=== PATIENT | female | born 1940 | race Caucasian/White ===

== ENCOUNTER → 2016-05-15 | Outpatient (CLI) | payer OTHER, BC ==
[~2016-05-15] MED LIST: AMLO2.5T2 PO; GLC500 PO; LOSA50TA6 PO; MULT-506 PO; PRM/3 PO; PRMVC PV; TRIATAB3 PO
[2016-05-15 17:33] LABS: ALT/SGPT 29 U/L (12-78); AST/SGOT 16 U/L (15-37); BLOOD UREA NITROGEN 17 mg/dl (7-18); BUN/CREATININE RATIO 21.3 (10-20); CALCIUM 9.1 mg/dl (8.5-10.1); CARBON DIOXIDE 27 mmol/L (21-32); CHLORIDE 104 mmol/L (98-107); GLUCOSE 129 mg/dl (70-99); POTASSIUM 4.1 mmol/L (3.5-5.1); SODIUM 141 mmol/L (136-145)
[2016-05-15 17:36] LABS: ALB/GLOB RATIO 1.5 (0.9-2); ALKALINE PHOSPHATASE 46 U/L (45-117); CHOLESTEROL 226 mg/dl (0-200); CHOLESTEROL/HDL RATIO 3.2; HDL CHOLESTEROL 71 mg/dl; LDL CHOLESTEROL CALCULATED 114 mg/dl; TRIGLYCERIDES 205 mg/dl (0-150); VERY LOW DENSITY LIPOPROT CALC 41 mg/dl
[2016-05-16 06:30] LABS: ESTIMATED AVERAGE GLUCOSE 163 mg/dl; HA1C FLAG Normal (Normal)
== END | disposition home or self-care (01) ==
LOC: C.LABPVFM 10:45
PROVIDERS: ATTEND Family Medicine
DX: I10 Essential (primary) hypertension (principal); E11.9 Type 2 diabetes mellitus without complications; E78.5 Hyperlipidemia, unspecified

== ENCOUNTER → 2016-09-12 | Outpatient (CLI) | payer OTHER, BC ==
--- NOTE | 2016-09-12 17:13 | MAMMOGRAPHY REPORT ---
BILATERAL DIGITAL SCREENING MAMMOGRAM WITH CAD: 09/12/2016 CLINICAL HISTORY: Routine screening. Patient has no complaints. TECHNIQUE: Bilateral CC and MLO views were obtained. Current study was also evaluated with a Compute r Aided Detection (CAD) system. COMPARISON: Comparison is made to exams dated: 08/30/2015 mammogram, 08/25/2014 mammogram, 08/21/2013 m ammogram, 08/20/2012 mammogram, 08/20/2011 mammogram, and 08/16/2010 mammogram - [facility] enter. BREAST COMPOSITION: There are scattered areas of fibroglandular density in both breasts. FINDINGS: A linear scar marker overlies the upper inner posterior right breast. A few benign-appear ing microcalcifications in the breasts. No new suspicious mass, architectural distortion or cluster of microcalcifications is seen. IMPRESSION: ACR BI-RADS CATEGORY 1: NEGATIVE There is no mammographic evidence of malignancy. A 1 year screening mammogram is recommended. The pa tient will receive written notification of the results. Approximately 10% of breast cancers are not detected with mammography. A negative mammographic report should not delay biopsy if a clinically suggestive mass is present. Adia Rand M.D. ay/:09/12/2016 15:04:49 Buffing Machine Tender: Kira POWER(R)(M), [facility] letter sent: Normal 1/2 BI-RADS Code: ACR BI-RADS Category 1: Negative
== END | disposition home or self-care (01) ==
LOC: C.MAMM 14:20
PROVIDERS: ATTEND Obstetrics & Gynecology
DX: Z12.31 Encounter for screening mammogram for malignant neoplasm of breast (principal)

== ENCOUNTER → 2016-11-05 | Outpatient (CLI) | payer OTHER, BC ==
[2016-11-05 12:51] LABS: BLOOD UREA NITROGEN 16 mg/dl (7-18); BUN/CREATININE RATIO 18.4 (10-20); CALCIUM 9.6 mg/dl (8.5-10.1); CARBON DIOXIDE 27 mmol/L (21-32); CHLORIDE 103 mmol/L (98-107); CHOLESTEROL 222 mg/dl (0-200); CREATININE 0.88 mg/dl (0.60-1.20); GLUCOSE 178 mg/dl (70-99); POTASSIUM 3.8 mmol/L (3.5-5.1); SODIUM 137 mmol/L (136-145)
[2016-11-05 12:54] LABS: CHOLESTEROL/HDL RATIO 3.3; HDL CHOLESTEROL 67 mg/dl; LDL CHOLESTEROL CALCULATED 118 mg/dl; TRIGLYCERIDES 184 mg/dl (0-150); VERY LOW DENSITY LIPOPROT CALC 37 mg/dl
[2016-11-05 13:02] LABS: ESTIMATED AVERAGE GLUCOSE 189 mg/dl; HA1C FLAG Normal (Normal)
== END | disposition home or self-care (01) ==
LOC: C.LABPVFM 10:26
PROVIDERS: ATTEND Nurse Practitioner
DX: E78.5 Hyperlipidemia, unspecified (principal); E11.9 Type 2 diabetes mellitus without complications; I10 Essential (primary) hypertension

== ENCOUNTER → 2017-03-26 | Outpatient (CLI) | payer OTHER, BC ==
[2017-03-26 13:06] LABS: BLOOD UREA NITROGEN 25 mg/dl (7-18); BUN/CREATININE RATIO 27.9 (10-20); CARBON DIOXIDE 28 mmol/L (21-32); CHLORIDE 102 mmol/L (98-107); CREATININE 0.91 mg/dl (0.60-1.20); GLUCOSE 162 mg/dl (70-99); POTASSIUM 3.7 mmol/L (3.5-5.1); SODIUM 137 mmol/L (136-145)
[2017-03-26 13:22] LABS: ESTIMATED AVERAGE GLUCOSE 171 mg/dl; HA1C FLAG Normal (Normal)
== END | disposition home or self-care (01) ==
LOC: C.LABPVFM 10:43
PROVIDERS: ATTEND Nurse Practitioner
DX: D12.6 Benign neoplasm of colon, unspecified (principal); E11.9 Type 2 diabetes mellitus without complications

== ENCOUNTER → 2017-05-16 | Outpatient (CLI) | payer OTHER, BC | END | disposition home or self-care (01) | LOC: C.LABPVFM 11:04 | PROVIDERS: ATTEND Nurse Practitioner | DX: E78.5 Hyperlipidemia, unspecified (principal) ==

== ENCOUNTER 2024-10-30 08:06 | Observation (INO) ==
--- NOTE | 2024-10-12 11:30 | PAT Medication Instructions ---
Medication Instructions Date of Service October 12, 2024 Home Medications Medication Instructions Recorded triamcinolone acetonide 0.1 % 1 applic topical BID PRN rash #15 10/15/22 topical ointment grams blood sugar diagnostic (OneTouch #100 ea 06/04/23 Verio test strips) blood-glucose meter #1 ea 06/04/23 lancets #100 ea 06/04/23 amlodipine 5 mg tablet 5 mg PO BID #180 tabs 03/17/24 celecoxib 100 mg capsule 100 mg PO BID PRN pain #60 caps 07/28/24 insulin glargine 100 unit/mL (3 See Rx Instructions subcut 08/26/24 mL) subcutaneous pen (Lantus .COMPLEX #30 mL Solostar U-100 Insulin) pen needle, diabetic 32 gauge x #200 ea 08/26/24" blood-glucose sensor (Dexcom G7 #3 ea 08/27/24 Sensor device) blood-glucose,credit collections specialist,cont #1 ea 08/27/24 (Dexcom G7 Pricing Consultant) trazodone 50 mg tablet 75 mg (1.5 x 50 mg) PO HS #135 tabs 09/11/24 biotin 5,000 mcg disintegrating tablet 5,000 mcg PO QAM multivitamin with iron 1 tab PO QAM triamcinolone acetonide 0.1 % topical ointment 1 applic topical BID PRN magnesium 200 mg tablet 200 mg PO QAM amlodipine 5 mg tablet 5 mg PO BID celecoxib 100 mg capsule 100 mg PO BID PRN insulin glargine 100 unit/mL (3 mL) subcutaneous pen (Lantus Solostar U-100 Insulin) See Rx Instructions subcut .COMPLEX trazodone 50 mg tablet 75 mg (1.5 x 50 mg) PO HS acetaminophen 500 mg capsule 1,000 mg PO Q6H PRN cholecalciferol (vitamin D3) 50 mcg (2,000 unit) capsule (Vitamin D3) 50 mcg PO QAM diclofenac sodium 1 % topical gel (Arthritis Pain (diclofenac)) 2 g topical QID PRN losartan 100 mg tablet 100 mg PO QAM metformin 500 mg tablet,extended release 24 hr 500 - 1,000 mg PO UD mirabegron 50 mg tablet,extended release 24 hr 50 mg PO QPM omeprazole 20 mg capsule,delayed release 20 mg PO HS ASK your surgeon for instructions celecoxib 100 mg capsule 100 mg PO BID PRN diclofenac sodium 1 % topical gel (Arthritis Pain (diclofenac)) 2 g topical QID PRN STOP taking 2 weeks before surgery (or as soon as possible if surgery is within 2 weeks) biotin 5,000 mcg disintegrating tablet 5,000 mcg PO QAM STOP taking 24 hours before surgery triamcinolone acetonide 0.1 % topical ointment 1 applic topical BID PRN DO NOT take the morning of surgery multivitamin with iron 1 tab PO QAM magnesium 200 mg tablet 200 mg PO QAM cholecalciferol (vitamin D3) 50 mcg (2,000 unit) capsule (Vitamin D3) 50 mcg PO QAM losartan 100 mg tablet 100 mg PO QAM metformin 500 mg tablet,extended release 24 hr 500 - 1,000 mg PO UD Take morning of surgery With a small sip of water, OTHERWISE NOTHING TO EAT OR DRINK AFTER MIDNIGHT: amlodipine 5 mg tablet 5 mg PO BID acetaminophen 500 mg capsule 1,000 mg PO Q6H PRN(if needed) Take evening before surgery amlodipine 5 mg tablet 5 mg PO BID insulin glargine 100 unit/mL (3 mL) subcutaneous pen (Lantus Solostar U-100 Insulin) See Rx Instructions subcut .COMPLEX trazodone 50 mg tablet 75 mg (1.5 x 50 mg) PO HS acetaminophen 500 mg capsule 1,000 mg PO Q6H PRN(if needed) mirabegron 50 mg tablet,extended release 24 hr 50 mg PO QPM omeprazole 20 mg capsule,delayed release 20 mg PO HS Insulin Dependent Diabetic Patients * Test your blood sugar the morning of surgery * If Blood Sugar is GREATER THAN 150, take HALF of your regular dose of: insulin glargine 100 unit/mL (3 mL) subcutaneous pen (Lantus Solostar U-100 Insulin). * If Blood Sugar is LESS THAN 150, DO NOT TAKE ANY: insulin glargine 100 unit/mL (3 mL) subcutaneous pen (Lantus Solostar U-100 Insulin). Other Notes If you have any questions please call us at [phone] or [phone] or [phone] or [phone]
--- NOTE | 2024-10-19 13:09 | Anesthesiology Consultation ---
Date of Service October 19, 2024 Assessment & Plan (1) Pre-op evaluation: Plan - check BSG am DOS. - awaiting signed 10/19/24 [place] PCP clearance. - Outpatient joint assessment: Patient is currently scheduled for inpatient pathway. If re-evaluated and patient/surgeon requests outpatient pathway, patient is not a candidate for outpatient joint program. Chart Review Chart Review: Pending: Refer to Additional Notes / Consult section and Patient seen in Pre Admission Testing Teaching & Discussion Pre-Anesthesia Teaching/Discussion Notes: Instructed NPO after midnight before surgery, except medications with 15 cc of water. Medication instructions provided according to the PAT guidelines. History Surgery Operation Date: 10/30/24 12:00 Proposed Procedures p Left Total Knee Arthroplasty - Fredis Dorado, Height/Weight Height: 5 ft 4 in Weight: 63 kg Allergies Allergy/AdvReac Type Severity Reaction Status Date / Time ammonia Allergy Unknown Verified 10/19/24 14:56 cephalexin Allergy Unknown unknown Verified 10/19/24 14:56 empagliflozin AdvReac Mild excessive Verified 10/19/24 14:56 [From Jardiance] thirst and freq urination hair dye Allergy Severe itchiness Uncoded 10/19/24 14:56 Medications Home Medications Medication Instructions Recorded Confirmed Last Taken biotin 5,000 mcg disintegrating 5,000 mcg PO QAM 04/20/19 10/19/24 Unknown tablet multivitamin with iron 1 tab PO QAM 03/09/22 10/19/24 Unknown triamcinolone acetonide 0.1 % 1 applic topical BID PRN rash #15 10/15/22 10/19/24 Unknown topical ointment grams blood sugar diagnostic (OneTouch #100 ea 06/04/23 10/19/24 Unknown Verio test strips) blood-glucose meter #1 ea 06/04/23 10/19/24 Unknown lancets #100 ea 06/04/23 10/19/24 Unknown magnesium 200 mg tablet 200 mg PO QAM 01/01/24 10/19/24 Unknown amlodipine 5 mg tablet 5 mg PO BID #180 tabs 03/17/24 10/19/24 Unknown celecoxib 100 mg capsule 100 mg PO BID PRN pain #60 caps 07/28/24 10/19/24 Unknown pen needle, diabetic 32 gauge x #200 ea 08/26/24 10/19/24 Unknown " blood-glucose sensor (Dexcom G7 #3 ea 08/27/24 10/19/24 Unknown Sensor device) blood-glucose,soliciting freight agent,cont #1 ea 08/27/24 10/19/24 Unknown (Dexcom G7 Director Of Residential Services) trazodone 50 mg tablet 75 mg (1.5 x 50 mg) PO HS #135 tabs 09/11/24 10/19/24 Unknown acetaminophen 500 mg capsule 1,000 mg PO Q6H PRN Pain 10/07/24 10/19/24 Unknown cholecalciferol (vitamin D3) 50 50 mcg PO QAM 10/07/24 10/19/24 Unknown mcg (2,000 unit) capsule (Vitamin D3) diclofenac sodium 1 % topical gel 2 g topical QID PRN Pain 10/07/24 10/19/24 Unknown (Arthritis Pain (diclofenac)) losartan 100 mg tablet 100 mg PO QAM 10/07/24 10/19/24 Unknown metformin 500 mg tablet,extended 500 - 1,000 mg PO UD 10/07/24 10/19/24 Unknown release 24 hr mirabegron 50 mg tablet,extended 50 mg PO QPM 10/07/24 10/19/24 Unknown release 24 hr omeprazole 20 mg capsule,delayed 20 mg PO HS GERD 10/07/24 10/19/24 Unknown release insulin glargine 100 unit/mL (3 See Rx Instructions subcut 10/19/24 10/19/24 Unknown mL) subcutaneous pen (Lantus .COMPLEX #30 mL Solostar U-100 Insulin) Past Medical History Medical History CAD (coronary artery disease) non-obstructive Costal chondritis hx, resolved per pt. 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 Exercise / Class Metabolic Activity III < 4 Walking/Shop/Light housework (less than 8 steps in home, ambulates with cane-denies chest discomfort or shortness of breath with usual activities) Past Family History Family History Mother Colorectal cancer Diabetes Hypertension Denies family history of Ovarian cancer Prostate cancer Breast cancer Stroke Past Surgical History Surgical History H/O wrist surgery left wrist, fx repair, 1 plate w/ 9 screws > hardware intact H/O: hysterectomy age 43 History of cataract extraction Hx of cardiac cath (2022) [facility], abn stress test, "false positive" Hx of colonoscopy ~age 70 Past Anesthesia History No Hx of Anesthesia Complications and No Family Hx of Anesthesia Complications History of PONV No Hx of PONV and No Hx of Motion Sickness Social History Smoking Status: Former smoker tobacco type: cigarettes Do You Dip or Chew Tobacco: No Smoking End Date: many years ago, occasional Hx Alcohol Use: No Hx Substance Use: No substance use type: does not use Review of Systems Patient denies chest pain, shortness of breath, dyspnea on exertion, snoring, witnessed apneas, fever, chills, cough, wheezing, or palpitations. Physical Exam Vital Signs Vitals BP 129/74 P 85 TEMP 98.1 SP02 94% on RA RESP 18 Physical Patient resting comfortably in chair in no acute distress, alert and oriented, responding appropriately throughout visit Full cervical extension range of motion without pain TMD 3.5 finger breadths Mallampati Score 2 Dentition: repaired front chipped tooth, denies chipped or loose teeth, caps/crowns, implants or bridges Lungs: normal respiratory effort. Good air movement, clear throughout to auscultation, no adventitious breath sounds Cardiac: regular rate and rhythm, no murmurs noted Carotid arteries: negative bruit bilat Lab Results Anesthesia Preop Results Results Anesthesia Widget: WBC 8.16 K/ul (4.8-10.8) 10/19/24 Hgb 11.7 g/dl (12.0-16.0) L 10/19/24 Hct 34.9 % (37.0-47.0) L 10/19/24 Plt 303 K/uL (130-400) 10/19/24 Na 138 mmol/L (136-145) 10/19/24 K 3.8 mmol/L (3.5-5.1) 10/19/24 Cl 104 mmol/L (98-107) 10/19/24 CO2 26 mmol/L (21-32) 10/19/24 BUN 17 mg/dl (6-23) 10/19/24 Creat 0.82 mg/dl (0.6-1.2) 10/19/24 Glucose Level 107 mg/dl (70-99(Fasting)) H 10/19/24 PT 10.6 Seconds (9.0-12.0) 10/19/24 PTT 30 Seconds (21-31) 10/19/24 INR 1.0 (0.9-1.1) 10/19/24 HA1c 6.6 % (4.5-5.6) H 10/19/24 Blood Type O Positive 10/19/24 Antibody Screen NEGATIVE 10/19/24 Testing Electrocardiogram Date: 10/19/24 NSR, rate 81 bpm Chest X-Ray Date: 10/19/24 No acute findings. Stress Test Date: 07/31/22 Development of EKG and echo cardiographic findings consistent with ischemia Mild cLVH METS 4.6 MPHR > 100% EF 60% Mild tricuspid regurgitation Cardiac Catheterization Date: 08/14/22 LM -Short, normal caliber, no significant disease LAD -medium caliber, proximal luminal irregularities, mid to distal vessel tortuous with no significant disease and extends to apex. Circumflex -dominant, large caliber, proximal/mid luminal irregularities. Distal vessel, left PDA without significant disease. Medium OM1 with 20% proxi mal disease. OM2 no disease. RCA -small, nondominant, no significant disease 1. Minimal nonobstructive coronary artery disease 2. Normal intracardiac filling pressure Recommendations: Stress test findings represent false positive.
--- NOTE | 2024-10-21 08:29 | Communication Note ---
Date of Service: October 21, 2024 Patient contacted JACEY, unable to add addendum due to awaiting co-signature. Patient states she drinks Pepto Bismol prior to appts for bowel control and I ad vised she cannot take that after midnight before surgery. She verbalized understanding, denied questions, concerns or additional medications.
[~2024-10-30 08:06] MED LIST changes: +ACETAMINOPHEN 500 MG TAB PO SCH; -AMLO2.5T2 PO; +FAMOTIDINE 20 MG TAB PO SCH; +GABAPENTIN 300 MG CAP PO SCH; -GLC500 PO; -LOSA50TA6 PO; +LR 60ML/HR IV SCH; -MULT-506 PO; -PRM/3 PO; -PRMVC PV; +ROPIV 0.5% 246mg, Ketorolac 30mg, EPINEPHrine 0.5mg in NSS INFIL SCH; +ROPIVACAINE 0.5% 5 MG/ML 30 ML VIAL ONE; +TRANEXAMIC ACID 1,000 MG **IV Pre-op IV SCH; -TRIATAB3 PO; +dexAMETHasone**PF** 10 MG/ML VIAL IV SCH
[2024-10-30] MEDS ORDERED: ONDANSETRON INJ 2 MG/ML 2 ML VIAL ONE (08:17)
[2024-10-30] MEDS ORDERED: PROPOFOL IV EMULSION 10 MG/ML 20 ML VIAL IV ONE (08:17)
[2024-10-30] MEDS ORDERED: MIDAZOLAM HCL 1 MG/ML 2ML VIAL ONE (08:18)
--- NOTE | 2024-10-30 09:11 | History & Physical Bridge Note ---
Date of Service October 30, 2024 History & Physical Bridge Note I have examined the patient, reviewed the History & Physical and in the interval since the performance of the History & Physical I have noted the following changes of clinical significance: no changes noted
[2024-10-30] MEDS ORDERED: Nursing to Pharmacy Communication SCH (09:15)
[2024-10-30] MEDS: LR 500ML BOLUS, THEN 15ML/HR IV SCH (09:29)
[2024-10-30] MEDS: ACETAMINOPHEN 500 MG TAB PO SCH ×2 (09:30→15:07)
[2024-10-30] MEDS: LR 60ML/HR IV SCH (09:31)
[2024-10-30] MEDS: dexAMETHasone**PF** 10 MG/ML VIAL IV SCH (09:31)
[2024-10-30] MEDS: GABAPENTIN 300 MG CAP PO SCH (09:31)
[2024-10-30] MEDS: FAMOTIDINE 20 MG TAB PO SCH (09:31)
[2024-10-30] MEDS: TRANEXAMIC ACID 1,000 MG **IV Pre-op IV SCH (09:46)
[2024-10-30] MEDS ORDERED: PHENYLEPHRINE 100MCG/ML 5ML SYR ONE (10:27)
[2024-10-30] MEDS ORDERED: PHENYLEPHRINE HCL 10 MG/ML VIAL ONE (10:27)
[2024-10-30] MEDS: ORTHO JOINT ANESTHETIC ONE (10:42)
[2024-10-30] MEDS: ROPIV 0.5% 246mg, Ketorolac 30mg, EPINEPHrine 0.5mg in NSS INFIL SCH (10:42)
--- NOTE | 2024-10-30 12:24 | XRay Report ---
XR knee LT 1 or 2V routine CLINICAL HISTORY: Postoperative evaluation. COMPARISON: Left knee radiographs August 18, 2024. FINDINGS: Alignment of the total left knee arthroplasty is anatomic. There is no periprosthetic frac ture or unexpected radiopaque foreign body. IMPRESSION: Expected findings following total left knee arthroplasty. ACT 112: Negative or not required by law. Electronically signed by: Raudel Haley M.D. 10/30/2024 12:23 PM
--- NOTE | 2024-10-30 13:14 | Anesthesiology Progress Note ---
Date of Service October 30, 2024 Anesthesia Post Procedure Vital Signs Vital Signs: Temp Pulse Resp BP Pulse Ox O2 Del Method 10/30/24 13:10 89 16 142/71 H 97 Room Air 10/30/24 12:55 92 H 15 145/70 H 94 Room Air 10/30/24 12:40 85 20 140/61 93 Room Air 10/30/24 12:30 84 22 138/71 96 Room Air 10/30/24 12:20 36.3 C L 76 18 139/77 96 Room Air 10/30/24 12:10 83 20 124/74 95 Room Air 10/30/24 12:00 82 14 147/64 H 95 Room Air 10/30/24 11:53 86 15 138/65 94 Room Air 10/30/24 08:57 36.6 C 85 20 173/84 H 98 Room Air Pain Intensity Left Knee: Pain Intensity: 3 Transfer of Care Handoff Completed per policy Notes Mental Status: alert / awake / arousable Patient Amnestic to Procedure: Yes Nausea / Vomiting: adequately controlled Pain: adequately controlled Airway Patency, RR, SpO2: stable & adequate BP & HR: stable & adequate Hydration State: stable & adequate Neuraxial Anesthesia: was administered and sensory block is resolving Anesthetic Complications: no major complications apparent
[2024-10-30] MEDS ORDERED: METOCLOPRAMIDE HCL INJ 5 MG/ML 2 ML VIAL IV PRN (13:41)
[2024-10-30] MEDS ORDERED: NALOXONE HCL 0.4 MG/1 ML VIAL/CARP IV PRN (13:41)
[2024-10-30] MEDS ORDERED: NON-FORMULARY MEDICATION (Insulin Glargine [Lantus Solostar U-100 Insulin] 100 unit/mL (3 SQ SCH (13:41)
[2024-10-30] MEDS ORDERED: MAGNESIUM HYDROXIDE SUSP 30 ML UDC PO PRN (13:41)
[2024-10-30] MEDS ORDERED: ONDANSETRON INJ 2 MG/ML 2 ML VIAL IV PRN (13:41)
[2024-10-30] MEDS ORDERED: HYDROmorphone INJ 0.5 MG/0.5 ML SYR IV PRN (13:41)
[2024-10-30] MEDS ORDERED: PHARMACY GLYCEMIC MGMT CONSULT PRN (13:41)
[2024-10-30] MEDS: SODIUM CHLORIDE 0.9% 1,000 ML IV SCH (13:45)
[2024-10-30] MEDS ORDERED: GLUCOSE 10 TAB/TUBE PO PRN (14:00)
[2024-10-30] MEDS ORDERED: CARBOHYDRATES FOR HYPOGLYCEMIA PO PRN (14:00)
[2024-10-30] MEDS ORDERED: GLUCOSE 40% GEL 15 GM TUBE PO PRN (14:00)
[2024-10-30] MEDS ORDERED: GLUCAGON FOR INJ 1 MG VIAL SQ PRN (14:00)
[2024-10-30] MEDS ORDERED: DEXTROSE 50% 50 ML SYRINGE IV PRN (14:00)
--- NOTE | 2024-10-30 14:08 | Pharmacy Report ---
Pharmacy Glycemic Short Note 2 - Date of Service October 30, 2024 - Glycemic Short BSG Results (Last 24 hours): 10/30/24 10/30/24 08:58 12:08 POC Glucose 126 H 135 H OUTPATIENT ANTIDIABETIC REGIMEN: * Lantus 8 units SC qAM, 5 units SC qPM * Metformin 500 mg PO qAM, 1000 mg PO qPM HbA1c: 6.6% (10/19/24) ASSESSMENT: * SB is an 84 year old female POD #0 s/p left total knee arthroplasty * Received 10 mg IV dexamethasone in OR, no ongoing steroids ordered * Preop blood sugar of 126 mg/dL and postop blood sugar of 135 mg/dL * Will utilize slight dose increase of home basal and weight/stress 2.5 for Novolog initially PLAN FOR INPATIENT GLYCEMIC CONTROL: * Hold outpatient oral diabetes medications * Basal insulin * Lantus 15 units SC x 1 * Reassess in AM * Bolus insulin * NovoLog per scale ACHS or Q6hrs while NPO * Goal Range: Low 120 mg/dL - High 150 mg/dL * Correction Factor: 30 mg/dL/unit * Nutritional / Prandial insulin per carb ratio of 1 unit per 10 grams CHO consumed
[2024-10-30] MEDS: INSULIN ASPART PER UNIT CHARGE SC SCH (15:04)
[2024-10-30] MEDS: LANTUS PER UNIT CHARGE SC ONE (15:06)
[2024-10-30] MEDS: KETOROLAC TROMETHAMINE 15 MG/ML VIAL IV SCH (15:07)
--- NOTE | 2024-10-30 15:50 | Operative Report ---
PG Post Operative Report Pre & Post Diagnosis Operation Date: 10/30/24 10:00 Pre-Op Diagnosis: Left Knee Osteoarthritis Post-Op Diagnosis: Left Knee Osteoarthritis I identified the patient and participated in the time-out.: Yes Procedure Operation Date: 10/30/24 10:00 Actual Procedures p Robotic Assisted Left Total Knee Arthroplasty(Left) - Fredis Dorado DO Surgeon Fredis Dorado DO Sewage Screen Operator Tahir Olson PA-C Estimated Blood Loss 30 Findings Consistent with Post-Op Diagnosis Specimens Left femoral and tibial bone Description of Procedure Implants used: I used a Jose Persona total knee arthroplasty system with a size 7 narrow PS femur, D tibia, 28 oval patella, and a size 14 CPS polyethylene bearing. All c omponents were cemented in place with Biomet cement. Juancho arrived [facility] for the above procedure. She was seen in the preoperative holding area and the operative extremity was identified and signed. She was given a preoperative antibiotic, TXA, a spinal anesthetic and an adductor nerve block. She was taken back to the operating room and laid on the table in supine position. She was given basic sedation. The operative knee was then prepped and draped in sterile fashion. A timeout was done, and the patient and the operative extremity was properly identified. A midline incision was made directly over the patella. Dissection was taken down to the extensor mechanism. A medial parapatellar arthrotomy was used. The medial retinaculum was released and the fat pad was mostly excised. The knee was flexed and the ACL, PCL, and meniscus were removed. The alignment of the knee replacement was assisted with a Kiromic robotic knee. The femoral array was pinned in the distal femur and the tibial array was pinned using a percutaneous technique in the upper shaft of the tibia. The robot was appropriately calibrated and the structure of the knee was mapped out. The components were then manipulated on the screen to account for any malalignment and to assist in gap balancing. Once I was happy with the placement of the components on the screen, a distal femoral cutting guide was brought in place. The distal femur was then resected. The femur measured to be a size 7. A 4-in-1 cutting block was then put into place by the robot and 2 peg holes were drilled. The 4-in-1 cutting block was then impacted into place and anterior, posterior, and chamfer cuts were made. The cutting block was then brought down to the tibia and pinned into place. The proximal tibia was then resected. The posterior aspect of the knee was then opened up and any additional meniscus fragments and osteophytes were removed. The tibia measured to be a size D. The tibial plate was then placed in the appropriate rotation and the tibia was drilled and punched. Trial components were then placed. The patella was then everted and 9 mm was resected off the posterior aspect of the patella. The patella measured to be a size 28 oval. 3 peg holes were then drilled. A trial patella was placed. A size 14 CPS polyethylene insert was then trialed. The knee was brought through a full range of motion and felt to be stable. Trial components were then removed. The surrounding soft tissues were injected with 100 cc of an orthopedic pain control cocktail. All components were then cemented into place with Biomet cement. The final polyethylene insert was then snapped into place. Once cement was dry the tourniquet was deflated. Hemostasis was obtained. A dilute betadyne lavage was then done for 3 minutes. The joint was then irrigated with normal saline solution. The medial parapatellar arthrotomy was then closed with #1 Vicryl suture. The skin was closed with 2-0 Vicryl, 3-0V lock suture, and artis. A soft compressive dressing was placed. She was then transferred to a hospital bed and taken to the postanesthesia care unit in stable condition. She tolerated the procedure well. Tahir Olson PA-C, was present for the entire procedure. He was critical for patient positioning, prepping, draping, retraction exposure, wound closure and application of sterile dressing. I attest to the content of the Intraoperative Record and any orders documented therein. Any exceptions are noted below.
[2024-10-30] MEDS: SENNA 8.6 MG TAB PO SCH (20:24)
[2024-10-30] MEDS: DOCUSATE SODIUM 100 MG CAP PO SCH (20:24)
[2024-10-30] MEDS: VIBEGRON 75 MG TAB PO SCH (20:24)
[2024-10-30] MEDS: ASPIRIN 81 MG ECTAB PO SCH (20:25)
[2024-10-31 03:15] VITALS: TEMP 97.7
[2024-10-31 06:59] VITALS: PULSE 81; RESP 17; O2SAT 96
--- NOTE | 2024-10-31 08:14 | Orthopedic Progress Note ---
Date of Service October 31, 2024 Assessment & Plan (1) Status post left knee replacement: Overall she is doing very well. She is not having much pain in the left knee. She will be seen by physical therapy today for ambulation and range of motion exercises. She is on aspirin for DVT prophylaxis. The nursing staff can remove the Jace wrap and leave the Silverlon dressing after physical therapy. She can be discharged to home later today. She will follow-up with orthopedics in 2 weeks. Rima Dawkins was seen and examined at bedside this morning. Overall she is doing very well. She is not having much pain in the left knee. She has been up and ambula ting to the bathroom. She has no complaints.. Review of Systems All systems reviewed & are unremarkable except as noted in HPI & below. Physical Exam On physical exam of the left knee, the dressing is clean and dry. Her leg is out full extension. She has active dorsiflexion plantarflexion of her left ankle.. Results & Data Results & Data Laboratory Results . Diagnostic Findings Postoperative x-rays of the left knee show the prosthesis to be in anatomic alignment without any evidence of fracture, dislocation, or loosening.. PG Care Time/CCT Total # of Minutes Spent Total Time Spent with Patient: Total time spent is greater than 50% in coordination of care (as documented) at patient's floor/unit and/or counseling patient: Coding Level of Care Code 60576 Post Operative Follow-Up Diagnoses Status post left knee replacement Z96.652
[2024-10-31] MEDS: LANTUS PER UNIT CHARGE SC SCH (09:19)
[2024-10-31] MEDS: MULTIVITAMIN TAB PO SCH (09:22)
[2024-10-31 09:26] VITALS: BP 147/68
[2024-10-31] MEDS: LOSARTAN POTASSIUM 50 MG TAB PO SCH (09:26)
== END 2024-10-31 11:32 | disposition home health service (06) ==
LOC: 3E 08:06 → ASU 08:06